=== PATIENT | male | born 1970 | race Caucasian/White ===

== ENCOUNTER → 2020-08-16 | Outpatient (CLI) | payer OTHER ==
[~2020-08-16] MED LIST: CLEOCIN HCL300 MG PO; IBUPROFEN600 MG PO; Viscous lidocaine2% TOP
== END ==
LOC: MRI 07-20 14:45
DX: M46.96 Unspecified inflammatory spondylopathy, lumbar region (principal); M51.36 Other intervertebral disc degeneration, lumbar region
CPT/HCPCS: 72148